=== PATIENT | female | born 1995 | race American Indian/Alaskan Native ===

== ENCOUNTER 2017-01-14 16:31 | Emergency (ER) | payer MEDICAID ==
[2017-01-14] MEDS ORDERED: DECADRON IM ONE (20:29)
[2017-01-14] MEDS ORDERED: BENADRYL IM ONE (20:29)
--- NOTE | 2017-01-14 21:15 | Emergency Department Report ---
Entered by ALLISON GAMEZ, acting as scribe for THEO DAVILA PA. ED Rash HPI - HPI Chief Complaint: Skin Rash Stated Complaint: SKIN RASH Time Seen by Provider: 01/14/17 20:11 Duration: 1 week Location: Neck, Chest, Abdomen, Upper Extremities Suspected Cause: Unknown Rash Symptoms: Yes Itching (chin to last area), No Facial Swelling, No Tongue/ Oral Swelling, No Breathing Difficulties, No Choking Sensation, No Wheezing/ Dyspnea, No Peeling, No Blistering, No Fever, No Lightheaded, No Malaise, No Myalgias Severity: mild (mild itching) Other History: 21 y/o female, no pertinent PMHx, c/o of skin rash beginning 1 week ago of unknown cause, no aggravating or alleviating factors. Rash is partially scattered across the anterior torso. She reports itching,Denies SOB, respiratory problems. Patient states she has not been bitten by any insects in those areas. She reports having a dog at home. NKDA ED Review of Systems ROS: Stated complaint: SKIN RASH Other details as noted in HPI Comment: All other systems reviewed and negative Constitutional: denies: chills, fever Eyes: denies: vision change ENT: denies: throat pain, congestion Respiratory: no symptoms reported Cardiovascular: denies: chest pain, palpitations, edema, syncope Gastrointestinal: denies: abdominal pain, nausea, vomiting, diarrhea Musculoskeletal: denies: back pain, arthralgia Skin: rash (flat non erythematous rash partially scattered to the anterior torso ), pruritus Neurological: denies: headache ED Past Medical Hx - Past Medical History Previous Medical History?: No - Surgical History Past Surgical History?: Yes Additional Surgical History: HERNIA REPAIR - Family History Family history: hypertension - Social History Smoking Status: Never Smoker Substance Use Type: None - Medications Home Medications: Home Medications Medication Instructions Recorded Confirmed Last Taken Type Cetirizine HCl [ZyrTEC] 10 mg PO QDAY #5 capsule 01/14/17 Unknown Rx predniSONE [Deltasone] 50 mg PO QDAY #5 tab 01/14/17 Unknown Rx Rash Exam - Exam General: Vital signs noted. No distress. Alert and acting appropriately. HEENT: No Periorbital Edema, No Conjuctival Injection, No Chemosis, No Perioral Edema, No Tongue Edema (tongue is normal), No Uvular Edema (Moist, no pharyngeal exudate or erythema. Uvula is midline and oral airway is patent. No facial swelling. No peritonsillar abscesses.), No Compromised Airway, No Drooling Lungs: Yes Good Air Exchange (skin and equal bilaterally no rhonchi wheezes or rales), No Wheezes, No Ronchi, No Stridor, No Cough, No Labored Respirations, No Retractions, No Use of Accessory Muscles, No Other Abnormal Lung Sounds Heart: Yes Regular (regular rhythm, normal rate, S1,S2), No Murmur Skin: Yes Other (rash is flat, partially scattered to anterior torso , upper extremities, abdomen and neck. with no erythema present), No Urticarial Rash, No Maculopapular Rash, No Morbilliform rash, No Bulla(e), No Excoriations, No Weeping, No Tenderness, No Erythema, No Edema, No Encrustations Other: Positive: Abdomen Normal, Neurologic Normal, Musculoskeletal Normal ED Course Vital Signs 01/14/17 16:59 Temperature 98.7 F Pulse Rate 92 H Respiratory 17 Rate Blood Pressure 105/70 O2 Sat by Pulse 98 Oximetry - Reevaluation(s) Reevaluation #1: 01/14/17 21:06 Patient received Benadryl 50 mg IM and Decadron 10 mg IM. ED Medical Decision Making - Medical Decision Making ED Course: Patient with pruritic contact dermatitis known source. Given Benadryl 50 mg IM and Decadron 10 mg IM and emergency room for further she will need to follow-up with sociology teacher for skin testing and she is in stable condition discharged home with family member and given prescription for prednisone and Zyrtec. Critical care attestation.: If time is entered above; I have spent that time in minutes in the direct care of this critically ill patient, excluding procedure time. ED Disposition Clinical Impression: Pruritic dermatitis Disposition: DISCHARGED TO HOME OR SELFCARE Is pt being admited?: No Does the pt Need Aspirin: No Condition: Stable Instructions: Contact Dermatitis (ED) Additional Instructions: . Follow up with sociology teacher referred to for skin testing. Prescriptions: Cetirizine HCl [ZyrTEC] 10 mg PO QDAY #5 capsule predniSONE [Deltasone] 50 mg PO QDAY #5 tab Referrals: MARIA DE JESUS GARCIA MD [Staff Physician] - 3-5 Days Forms: Work/School Release Form(ED) This documentation as recorded by the VERA taylor MATHEW,accurately reflects the service I personally performed and the decisions made by me,THEO DAVILA PA.
[2017-01-14 21:23] VITALS: BP 108/66
== END 2017-01-14 21:22 | disposition home or self-care (01) ==
LOC: ED 16:31
DX: L30.8 Other specified dermatitis (principal)
CPT/HCPCS: 96372; 99282; J1100; J1200